=== PATIENT | female | born 1950 | race Caucasian/White ===

== ENCOUNTER → 2024-03-04 14:33 | Outpatient (REF) | payer MEDICARE, OTHER, SELFPAY ==
[2024-03-04 15:33] LABS: Urine Albumin 1+ (Neg - Trace); Urine Bilirubin 1+ (Negative); Urine Character Slightly Cloudy (Clear); Urine Glucose Negative (Negative); Urine Ketone 1+ (Negative); Urine Leukocyte 2+ (Negative); Urine Nitrite Negative (Negative); Urine Occult Blood Negative (Negative); Urine Specific Gravity 1.025 (<1.030); Urine Urobilinogen 2+ (Neg - 1+)
[2024-03-04 15:36] LABS: Urine Color Yellow
[2024-03-04 15:38] LABS: % Basophils 0.4 % (0-2); % Immature Granulocytes 0.4 % (0-0.5); % Lymphocytes 18.4 % (20.5-51.1); % Monocytes 14.8 % (1.7-9.3); Absolute Monocytes 0.8 10^3/uL (0.1-0.6); Absolute Neutrophils 3.7 10^3/uL (1.4-6.5); Hematocrit 36.3 % (37.0-47.0); Hemoglobin 12.5 g/dL (12.0-16.0); Mean Corp Hgb Conc. 34.4 g/dL (33.0-37.0); Mean Corpuscular Hgb 29.3 pg (27.0-31.0); Mean Corpuscular Volume 85.2 fL (81.0-99.0); Mean Platelet Volume 10.7 fL (7.4-10.4); Nucleated Red Blood Cells % 0 %; Platelet Count 126 10^3/uL (130-400); Red Blood Cell Count 4.26 10^6/uL (4.20-5.40); Red Cell Dist. Width 15.8 % (11.5-14.5); White Blood Cell Count 5.5 10^3/uL (4.8-10.8)
[2024-03-04 15:39] LABS: Erythrocyte Sed Rate 49 mm/hour (0-20)
[2024-03-04 15:43] LABS: Urine Bacteria Moderate (Negative); Urine Red Blood Cell 0-2 /HPF (0-2)
[2024-03-04 15:48] LABS: ALT (SGPT) 250 U/L (0-35); AST (SGOT) 170 U/L (14-36); Albumin 4.1 g/dl (3.5-5.0); Alkaline Phosphatase 141 U/L (38-126); Blood Urea Nitrogen 18 mg/dl (7-17); Carbon Dioxide 23 mmol/L (22-30); Chloride 98 mmol/L (98-107); Glucose 147 mg/dl (70-99); Potassium 4.4 mmol/L (3.5-5.1); Sodium 132 mmol/L (135-145); Total Bilirubin 1.7 mg/dl (0.2-1.3); Total Protein 7.6 g/dl (6.3-8.2); eGFR 27.71
[2024-03-06 14:21] LABS: EBV-VCA IgM Antibodies 60.1 U/mL (0.0-43.9)
[2024-03-06 15:07] LABS: Lyme Antibody Screen, EIA Presump. Positive (Negative)
== END ==
LOC: REG 14:33
PROVIDERS: ATTENDING PHYSICIAN Family Medicine
DX: R50.9 Fever, unspecified (principal); M25.50 Pain in unspecified joint
CPT/HCPCS: 36415; 71046; 80053; 81003; 81015; 85025; 85652; 86617; 86618; 86663; 86664; 86665; 87086

== ENCOUNTER 2024-03-05 04:32 | Inpatient (IN) | payer MEDICARE, OTHER, SELFPAY ==
[2024-03-04 17:57] VITALS: BMI 27.6
[2024-03-04 17:58] VITALS: BP 120/77
[2024-03-04 20:00] VITALS: BP 140/70
--- NOTE | 2024-03-04 20:13 | ED.GENMED ---
History of Present Illness
General
Chief Complaint: Abnormal Lab Value
Source: patient and spouse
Time Seen by Provider: 03/04/24 19:59
History of Present Illness
History of Present Illness:
73-year-old female presents to the emergency room at the advice of her primary care provider, Dr. Burger. Patient has been feeling unwell for the past 8 days. She has been experiencing headache, subjective fever, body aches, nausea and diffuse
crampy abdominal discomfort. She denies any sick contacts or sick relatives. She denies any recent travel. She has not noted any rashes on her body. Patient has not vomited. She is able to tolerate oral intake. She has been taking Tylenol and
ibuprofen for her symptoms. She takes 2 regular strength Tylenol [address] Burger ordered some outpatient labs which revealed somewhat elevated liver function tests and a mildly elevated creatinine which prompted his referral to the
emergency room. Patient has not taken her temperature. She denies rigors but states she felt she had a fever because her lips were chapped and she felt body aches.
Phy Exam
Physical Exam
Physical Exam:
General: Awake, Alert, Oriented X3. No acute distress.
Vitals: unremarkable
Head: Atraumatic
Eyes: Pupils equal, EOMI
Throat: Airway intact, no exudates
Neck: Trachea midline
Lungs: Clear and equal b/l
Heart: Regular rate, no murmurs
Abd: Soft, no reproducible abdominal pain, no pulsatile mass
Neuro: Nonfocal
Skin: Warm, dry, no rash
Extremities: pulses equal b/l, no edema
Course
Orders/Labs/Results
Orders:
Orders
03/04/24 20:11
US Abdomen Complete/Upper Urgent
Comment:
Reason For Exam: subjective fever, elevated lft's
03/05/24 00:30
CT Abd/pelvis W Iv Cont Urgent
Reason For Exam: fever, abd pain
03/05/24 02:22
Piperacillin/Tazo 2.25 Gram [Zosyn] 2.25 grams in 50 ml IV NOW
Vital Signs
Initial and Last Documented VS:
Initial Vital Signs
Temp Pulse Resp BP Pulse Ox
98.3 F 85 20 120/77 96
03/04/24 17:58 03/04/24 17:58 03/04/24 17:58 03/04/24 17:58 03/04/24 17:58
Last Documented Vital Signs
Temp Pulse Resp BP Pulse Ox
98.3 F 75 16 135/99 95
03/04/24 17:58 03/04/24 23:00 03/04/24 23:00 03/05/24 02:00 03/04/24 23:00
MDM/Problems Addressed
Differential Diagnosis Includes:
Patient sent to the emergency room for abnormal lab work. Reviewed lab work reveals elevated LFTs as well as an elevated creatinine. Initially an ultrasound was performed which did not reveal any specific pathology. CT was then performed which
shows a gallstone in the fundus of the gallbladder with questionable inflammation of the fundus. No other intra-abdominal pathology noted. Given the fact that she has a documented gallstone I am concerned that she may have choledocholithiasis. In
addition there is some focal inflammation around the gallbladder. Given the patient has had subjective fevers we will cover with antibiotics and hospitalize for further workup.
MDM/Problems Addressed:
Patient presents with symptoms of fatigue, leg cramping and paresthesias. Outpatient testing showed a low hemoglobin prompting a referral to the emergency room. Hemoglobin here is 7.3. Also calcium is quite low at 6 point
*Radiology
Radiology exam reviewed: radiology read reviewed
*Pulse Oximetry
Patient hypoxic: no
*Critical Care Note
Total Time (30-74mins, 75-104mins- exclusive of procedures): Not Applicable
ED Attending Note
-
Portions of this chart may have been created with voice recognition software.� Occasional wrong word or��sound alike� substitutions may have occurred due to the inherent limitations of voice recognition software.
Discharge Plan
Departure
Patient Disposition: Admit
Date of Disposition: 03/05/24
Time of Disposition: 02:19
Presentation/result/management discussed w/ accepting MD/DO: Hospitalist
Condition: Fair
Discharge Problem:
Transaminitis, Acute cholecystitis
Referrals:
UNKNOWN - PT DOES,NOT KNOW [Family Provider] -
Interventions
Interventions:
*Risk Screen - Suicide Last Done: 03/04/24 17:58
*General Assessment Last Done: 03/04/24 17:58
*Neglect/Abuse Screening Last Done: 03/04/24 17:58
ED- Fall Risk Assessment Last Done: 03/04/24 22:00
Discharge Date and Time
Print Language: TURKMEN
[2024-03-04 23:00] VITALS: BP 121/75
[2024-03-05] VITALS (10 sets, daily range): BP systolic 123–154; BP diastolic 68–99; BMI 26.7
[2024-03-05] MEDS: ZOSYN 50 IV ×2 (02:30→08:02)
[2024-03-05] MEDS: NSS 1000 IV ×2 (03:38→08:02)
--- NOTE | 2024-03-05 04:07 | HPS.HSE ---
Family Physician
-
Family Physician: NOT KNOW UNKNOWN - PT DOES
Chief Complaint
-
fevers, abdominal cramping
History of Present Illness
The patient is a 73-year-old woman with past medical history significant for colon polyps and hypothyroidism who presents to the emergency department secondary to feeling unwell for the past 8 days, experiencing headache subjective fever body aches
nausea. She is also had diffuse crampy abdominal pain. She denies vomiting. She has been taking Tylenol and ibuprofen for symptoms. She had labs ordered outpatient for which she she was noted to have elevated liver function studies and elevated
creatinine. She has been feeling feverish.
Medical History
Past Medical History
Past Medical History: Reports Hypercholesterolemia, Hypothyroidism, Psychiatric (Depression) and Other (colon polyps, Lyme disease)
Past Surgical History: Reports Orthopedic (arthroscopy of left knee)
Social History
Tobacco: Former Smoker
Alcohol: Occasional
Drug: None
Family History
Family History: Not pertinent
Allergies / Home Medications
Allergies reflects when Allergies were last updated in [employer].
Home Medications with original date entered in [employer]
Allergy/Medication List:
Allergies
Allergy/AdvReac Type Severity Reaction Status Date / Time
No Known Allergies Allergy Verified 03/04/24 18:04
Home Medications
atorvastatin 80 mg tablet 80 mg PO DAILY 03/05/24
eszopiclone 3 mg tablet 3 mg PO HS PRN sleep 03/05/24
levothyroxine 125 mcg tablet 125 mcg PO DAILY 03/05/24
lifitegrast 5 % eye drops in a dropperette (Xiidra) 1 drp ophthalmic (eye) BID 03/05/24
Review of Systems
-
A 12 point ROS was completed and negative except as noted: Yes
Physical Exam
Vital Signs
Vital Signs
Temp Pulse Resp BP Pulse Ox
98.3 F 75 16 135/99 95
07/15/24 17:58 03/04/24 23:00 03/04/24 23:00 03/05/24 02:00 03/04/24 23:00
Physical Exam
General: Well Developed, Well Nourished, No Apparent Distress, Comfortable and Conversant
HEENT: NormoCephalic, Anicteric and Moist mucous membranes
GI: Soft, Non Distended and Tender (RUQ)
Musculoskeletal: No Clubbing, No Cyanosis and No Edema
Skin: Warm and Dry
Neuro: AO x 3, No Motor Deficits and Nonfocal/grossly intact
Psych: Calm
Impression/Plan
-
IMPRESSION:
# Transaminitis, concern for choledocholithiasis
AST 170, ALT 250, total bilirubin 1.7
-CT scan of the abdomen pelvis shows gallstones in the fundus of the gallbladder with possible inflammation of the fundus.
-GI Cx appreciated
-MRCP ordered
-cont IV Zosyn for now
-gentle IVF
-NPO
# Concern for acute renal failure
-creatinine 1.9 unknown baseline
-IVF bolus and continue IVF
-repeat labs in am
-renally dose medication
#Hypothyroidism
-cont Synthroid
#HLD
-cont statin
DVT proph - PCSs
Full Code
[2024-03-05] MEDS: SYNTHROID 125 MCG PO (08:09)
[2024-03-05] MEDS: LIPITOR 80 MG PO (08:09)
[2024-03-05] MEDS: TYLENOL 325 MG PO ×2 (08:32→19:32)
--- NOTE | 2024-03-05 10:20 | PTCARENOTE ---
Patient admitted to room 407-01 from ER. Vital signs stable. Reviewed plan of care with patient. Patient verbalizes understanding of teaching. IVF started and antibiotic given as ordered. Patient NPO at this time. Given Tylenol for headache.
Oriented to room, use of call mays, and television and bed controls. Patient verbalizes understanding of all teaching and denies questions at this time.
--- NOTE | 2024-03-05 11:52 | CON.GI ---
Addendum entered and electronically signed by Gladys Rodas Do, MD 03/05/24 17:43:
I saw and examined the patient.
The SKI PRODUCTION SUPERVISOR's note was reviewed and I agree with the note.
Comment: 73yo W with h/o HL, depression and hypothyroidism who was admitted for diffuse body/joint pain and fever. GI consulted for elevated LFTs lower abd pain. At time of interview denies abd pain, nausea or vomiting. Vitals reviewed AF obese
NTTP, NABS. suprapubic tenderness. Labs +UA. Imaging: MRI with 2.3cm multiseptated cyst of uncinate and gallstones with adenomyomatosis
Impressions
- Elevated LFTs
Unclear etiology no biliary dilation or signs of choledocholithiasis
Ddx includes fatty liver or viral hepatitis
- + UA with some suprapubic tenderness
- 2.3cm uncinate pancreatic cyst
- Cholelithiasis and adenomyomatosis of gallbladder fundus
Recommendations
- Do not see indication at this juncture for ERCP.
- For pancreatic cyst can FU with Dr Woodall OP for serial MRI vs elective EUS FNA
- Adv to low fat diet
- Viral hepatitis serologies negative
No further GI workup indicated at this juncture inpatient basis
She can FU OP with Dr Woodall in our office. Will need repeat LFTs in 1 wks time
GI will sign off please call for questions.
Addendum entered and electronically signed by MAN Riggs 03/05/24 12:55:
LFT's below are from 03/04 will add repeat to today's labs
Original Note:
Consultation
-
Date/Time Consultation Requested: 03/05/24 0716
Date/Time Consultation Performed: 03/05/24 1150
Requesting Provider: Candice Hawley DO
Performing Provider: MAN Mueller, Gladys Berry MD
Reason for Consultation: increased LFT's
Medical History
Chief Complaint / HPI
Chief Complaint: abdominal pain
History of Present Illness:
Pt is a 73yo with hx hypercholesterolemia, hypothyroidism, depression, colon polyps with onset of headaches, body/joint aches and feverish but did not take temperature and mild lower abdominal pain worse with eating. On admission noted with
elevated normal WBC's, creat 1.9 with elevated LFT's with bili 1.7. AST 170, ALT 250, alk phos 141. Imaging on admission with CXR neg, US with no duct dilation, unremarkable liver, CT with cholelithiasis, diverticulosis, HH, DDD. With MRI
pending. No hx liver problems, only supplement calcium and vitamin D. She take occasional NSAID use with current illness.
Pt also admits to diarrhea and constipation, GERD, and mild post prandial discomfort. She denies dysphagia, odynophagia, rectal bleeding. No recent travel, abx, sick contact. Last ETOH 2 months ago.
Past Medical History
Past Medical History: Hypercholesterolemia, Hypothyroidism, Psychiatric (depression) and Other (colon polyps, lyme disease)
Past Surgical History: Orthopedic (knee arthoscopy )
Social History
Tobacco: Former Smoker
Alcohol: Occasional (quit 2 months ago as cost too high )
Drug: None
Living: With Family (daughter)
Employment: Retired
Family History
Family History: Other (no family hx colon Ca or polyps no family hx pancreatic problems)
Allergies / Home Medications
Allergy/AdvReac Type Severity Reaction Status Date / Time
No Known Allergies Allergy Verified 03/04/24 18:04
�Medication �Instructions �Recorded
atorvastatin 80 mg tablet 80 mg PO DAILY 03/05/24
eszopiclone 3 mg tablet 3 mg PO HS PRN sleep 03/05/24
levothyroxine 125 mcg tablet 125 mcg PO DAILY 03/05/24
lifitegrast 5 % eye drops in a 1 drp ophthalmic (eye) BID 03/05/24
dropperette (Xiidra)
Review of Systems
-
History Source: Patient
Constitutional: Reports Fever (did not take temp, felt feverish)
EENT: Reports No Symptoms
Respiratory: Reports No Symptoms
Cardiac: Reports No Symptoms
Abdomen/GI: Reports Abdominal Pain (lower abdomen )
: Reports Frequency
Musculoskeletal: Reports Joint Pain
Skin: Reports No Symptoms
Neurological: Reports Weakness
Endocrine: Reports No Symptoms
Hematologic/Lymphatic: Reports No Symptoms
Vital Signs
Temp Pulse Resp BP Pulse Ox
98.5 F 83 17 154/85 96
03/05/24 07:15 03/05/24 07:15 03/05/24 07:15 03/05/24 07:15 03/05/24 10:20
Physical Exam
Exam
General: Well Developed, Well Nourished and No Apparent Distress
HEENT: Normocephalic and Anicteric
Respiratory: Clear
Cardiac: Regular Rhythm
GI: Soft, Non Tender and Non Distended
Musculoskeletal: No Clubbing and No Cyanosis
Skin: Warm and Dry
Neuro: Awake, Alert and AO x 3
Psych: Calm
Results
Diagnostic Image Results:
03/04 US abd
The gallbladder is contracted.
No bile duct dilatation.
Unremarkable sonographic appearance of the liver
03/05 CT with IV contrast
No acute abnormality in the abdomen or pelvis.
Cholelithiasis without acute cholecystitis.
Colonic diverticulosis without acute diverticulitis.
Chronic/incidental findings as detailed in the body of the report.-- small HH, DDD
Prior GI Procedures:
EGD:none
Colonoscopy: 2022- for[facility] One 4 mm polyp in the cecum, removed with a cold snare. Resected and retrieved - Diverticulosis in the sigmoid colon. bx lymphoid aggigate
Assessment / Plan
-
Pt is a 73yo with hx hypercholesterolemia, hypothyroidism, depression, colon polyps with onset of headaches, body/joint aches and feverish but did not take temperature and mild lower abdominal pain worse with eating. On admission noted with
elevated normal WBC's, creat 1.9 with elevated LFT's with bili 1.7. AST 170, ALT 250, alk phos 141. Imaging on admission with CXR neg, US with no duct dilation, unremarkable liver, CT with cholelithiasis, diverticulosis, HH, DDD.
-elevated LFT's
-fever/joint pain/headache/malaise
-lower abdominal pain
-cholelithiasis
-LANNY on admission
-mild thrombocytopenia
other med problems:
-hypercholesterolemia
-hypothyroidism
-depression
-colon polyp
PLAN:
Etiology of symptoms with fever, joint pain, malaise related to viral syndrome, urinary related with lower abdominal pain and some bacterial in urine with LANNY, vs biliary vs other
add blood cultures with report fever symptoms , urine cx pending, CXR neg
await MRI abdomen report pending
add hepatitis panel
add lipase
lyme, EBV pending
reviewed with nursing no documented fever -- if pt feels feverish to take temp to document
will follow
-
-
Thank you for consultation and allowing me to participate in the patient's care. Please call the technical consultant GI physician during the after hours with any questions or concerns.
[2024-03-05 13:36] LABS: ALT (SGPT) 204 U/L (0-35); AST (SGOT) 100 U/L (14-36); Albumin 3.7 g/dl (3.5-5.0); Alkaline Phosphatase 120 U/L (38-126); Direct Bilirubin 0.6 mg/dl (0.0-0.4); Lipase 59 U/L (23-300); Total Bilirubin 1.5 mg/dl (0.2-1.3); Total Protein 7.1 g/dl (6.3-8.2)
--- NOTE | 2024-03-05 13:39 | W.PN.HOSP.TC ---
Today's Communication/Plan
-
Okay for low fat diet as per GI
Continue antibiotics
Assessment / Plan
Assessment / Plan
Physical Exam
General: Not in acute distress
HEENT: Normocephalic, Moist mucous membranes
GI: Soft, Non Distended and Tender (RUQ)
Musculoskeletal: No Clubbing, No Cyanosis and No Edema
Skin: Warm and Dry
Neuro: AO x 3, No Motor Deficits and Nonfocal/grossly intact
Psych: Calm

Assessment/Plan
# Transaminitis, concern for choledocholithiasis
# Fever/joint pain/headache/malaise secondary to viral syndrome, UTI?, vs biliary source
# Lower abdominal pain
# Cholelithiasis
-CT scan of the abdomen pelvis shows gallstones in the fundus of the gallbladder with possible inflammation of the fundus.
-GI consulted, recommendations appreciated
-MRCP ordered
-Follow blood and urine cultures
-Hepatitis Panel
-Check Lipase
-Lyme and EBV also pending
-Status post Zosyn
-Change to Rocephin and Flagyl
-gentle IVF
-Low fat diet
# Concern for acute renal failure
-creatinine 1.9 unknown baseline
-IVF bolus and continue IVF
-repeat labs in am
-renally dose medication
#Hypothyroidism
-cont Synthroid
#HLD
-cont statin
#History of Colonic Polyps
#Depression
DVT Prophylaxis - SCDs and Heparin Subq
Full Code
Anticipated Discharge: > 48 hours
Subjective/Interval History
-
Date of Service: March 05, 2024
Patient was seen and examined. She reported a mild headache which she has been having for a few days now, otherwise denied any other new significant symptoms or complaints.
Objective Data
-
Labs:
Laboratory Results
03/05/24
12:44
Total Bilirubin 1.5 H
AST 100 H
ALT 204 H
Alkaline Phosphatase 120
Vital Signs:
Vital Signs
Temp Pulse Resp BP Pulse Ox
98.6 F 83 17 132/79 97
03/05/24 12:19 03/05/24 12:19 03/05/24 12:19 03/05/24 12:19 03/05/24 12:19
[2024-03-05 14:06] LABS: Hepatitis B Surface Antigen Negative (Negative)
[2024-03-05 14:24] LABS: Hepatitis B Core Ab, Total Negative (Negative); Hepatitis B Surface Antibody Negative; Hepatitis C Antibody Negative (Negative)
[2024-03-05 14:39] LABS: Hepatitis A Antibody, Total Positive (Negative)
[2024-03-05 15:33] LABS: Hepatitis A IgM Antibody Negative (Negative)
[2024-03-05] MEDS: FLAGYL 500 MG 100 IV (17:13)
[2024-03-05] MEDS: ROCEPHIN 2000 MG IV (17:14)
[2024-03-05] MEDS: STERILE WATER FOR INJECTION 20 ML IV (17:15)
[2024-03-05] MEDS: ZOSYN IV (18:01)
[2024-03-05] MEDS: HEPARIN 5000 UNITS SC (19:30)
[2024-03-05] MEDS: MELATONIN 5 MG PO (22:11)
[2024-03-06] VITALS (8 sets, daily range): BP systolic 106–145; BP diastolic 62–82; PULSE 74; O2SAT 96
[2024-03-06] MEDS: FLAGYL 500 MG 100 IV ×2 (00:53→08:56)
[2024-03-06] MEDS: ROXICODONE 5 MG PO ×2 (00:56→05:42)
--- NOTE | 2024-03-06 03:01 | DOWNTIME ---
There was a [employer] Client [employer] Downtime on 03/06/2024 from 0100 to 03/06/2024 at 0255. Downtime documentation of patient's care, including medication administrations, has been reconciled in the electronic record per guidelines. Refer to the
patient's paper chart under the miscellaneous tab to see printed paper medication records and downtime forms.
[2024-03-06] MEDS: SYNTHROID 125 MCG PO (05:35)
[2024-03-06 07:17] LABS: INR 1.15; PT 14.5 Sec (11.4-14.6)
[2024-03-06 07:22] LABS: ALT (SGPT) 162 U/L (0-35); AST (SGOT) 83 U/L (14-36); Albumin 3.3 g/dl (3.5-5.0); Alkaline Phosphatase 110 U/L (38-126); Blood Urea Nitrogen 12 mg/dl (7-17); Calcium 8.7 mg/dl (8.4-10.2); Carbon Dioxide 24 mmol/L (22-30); Chloride 106 mmol/L (98-107); Estimated Creatinine Clearance 45 ml/min; Glucose 109 mg/dl (70-99); Magnesium 1.7 mg/dl (1.6-2.3); Potassium 4.2 mmol/L (3.5-5.1); Sodium 137 mmol/L (135-145); Total Protein 6.5 g/dl (6.3-8.2); eGFR 53.39
[2024-03-06 08:35] LABS: Hematocrit 31.3 % (37.0-47.0); Hemoglobin 10.7 g/dL (12.0-16.0); Mean Corp Hgb Conc. 34.2 g/dL (33.0-37.0); Mean Corpuscular Hgb 29.9 pg (27.0-31.0); Mean Corpuscular Volume 87.4 fL (81.0-99.0); Mean Platelet Volume 10.2 fL (7.4-10.4); Platelet Count 171 10^3/uL (130-400); Red Blood Cell Count 3.58 10^6/uL (4.20-5.40); White Blood Cell Count 4.8 10^3/uL (4.8-10.8)
[2024-03-06] MEDS: HEPARIN 5000 UNITS SC ×2 (08:56→20:39)
[2024-03-06] MEDS: LIPITOR 80 MG PO (08:56)
[2024-03-06] MEDS: TYLENOL 325 MG PO (09:18)
--- NOTE | 2024-03-06 10:42 | CON.NEURO4 ---
Consultation - Neurology 4
-
CONSULTING PHYSICIAN: Guillermo Ledezma
REFERRING PHYSICIAN: Hospitalist
DICTATED BY: Guillermo Ledezma
DATE/TIME OF REQUEST: 03/06/24
DATE/TIME OF CONSULTATION: 03/06/24
Reason for Consultation: Headache
History of Present Illness:
Patient is a 73-year-old woman with a past medical history of hyperlipidemia and hypothyroidism who presented to hospital with constellation of symptoms of fatigue, diffuse body and joint pain, headache, malaise and subjective fevers.
Her symptoms began around 10 days ago with the above symptoms. Reports sick contact with her daughter. Patient did have some indigestion and intermittent on and off diarrhea. Lab work showed elevated liver function tests along with LANNY, abnormal
urinalysis. Has been being treated with antibiotics, initially was a concern for choledocholithiasis or cholecystitis.
Patient reports no recent head or neck trauma and headache began around 10 days ago with her other associated symptoms. She reports some jaw pain sometimes with chewing that feels like the hinge of her jaw feels yadira, has improved and not
noticeable in the past couple of days. No vision changes. Headache is not changed with position and she has no photophobia or phonophobia. Minimal nausea has been present. No history of headaches or migraines in her younger years and in general
does not get headaches.
Patient also describes some bilateral numbness in the hands and arms in the pinky and ring finger distribution going on but more recently the past few days this is intermittent, no weakness of the arms or hands.
Has used intermittent Tylenol and ibuprofen for symptom relief but not everyday or multiple times a day.
Past Medical History: Hyperlipidemia, hypothyroidism, depression, colon polyps, previous lyme disease
Surgical History: Left knee arthroscopy
Family History: Non-contributory
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
Allergies: No known drug allergies
Review of Symptoms:
Patient denies any chest pain, shortness of breath, GI or symptoms. Positive for fatigue, malaise, headache
Physical Exam:
Well-appearing middle elderly age woman with ice pack on her head no meningismus, neck is supple full range of motion eyes are clear, oropharynx is clear, no temporal area tenderness, eyes are clear, heart rate regular breathing unlabored abdomen
soft nontender
Neurologic Examination:
The patient is awake, alert and oriented x 3. She is able to follow commands and answer questions appropriately. There is no aphasia or dysarthria. On cranial nerve assessment, pupils are 3 mm bilateral, round and reactive to light and
accommodation. Visual brown are full. Extraocular movements are intact. Facial sensations are intact and bilaterally symmetrical, there is no facial asymmetry. Hearing is intact bilaterally to normal conversation volume. Tongue palate and uvula
are midline. Sternocleidomastoid strengths are full bilaterally. Motor strengths are 5/5 bilateral upper and lower extremities on medical research Underwood scale. There is no drift or involuntary movement noted. Deep tendon reflexes are 2+ bilateral
upper and lower extremities and Babinski is absent bilaterally. Sensations of pain, touch, temperature and vibration are intact and bilaterally symmetrical. There was no extinction noted on double simultaneous stimulation. Coordination is intact by
finger to nose bilaterally.
Impressions
1. Headaches seem most likely secondary to a systemic illness and metabolic derangements of kidney injury and liver injury. There has been concern for choledocholithiasis or cholecystitis or possibly a viral syndrome. Given these associated
findings of systemic symptoms along with LANNY and elevated liver function test I feel that giant cell arteritis is unlikely, is very rare for this to cause significant liver function or kidney function abnormalities and patient has recent sick
contacts.
2. Hand numbness seems most likely ulnar neuropathy from recent compression and sedentary state. No weakness.
2. 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
3. LANNY and moderate elevation in LFT's noted. Does not seem she was using so much NSAID or Tylenol at home that these are purely due to medication use.
Recommendations:
1. Give 10 mg IV Compazine now and use 10 mg every 8 hours IV as needed for head
2. Follow kidney function and if GFR goes above 60 could use very low-dose of codeine as needed for headache
3. Avoid NSAIDs with the LANNY
4. Follow blood cultures, infectious workup, EBV is pending
5. Check CT head and CT cervical spine
6. If she is unimproved with time and no clear cause of symptoms and call us back, feels premature and a bit drastic at this time to initiate steroids and temporal artery biopsy
7. Check ANCA and BARRY
Discussed patient care with: Patient and hospitalist
--- NOTE | 2024-03-06 11:28 | W.PN.HOSP.TC ---
Today's Communication/Plan
-
Continue antibiotics
Lyme and EBV tests coming back positive
Appreciate ID and patient's PCP
Assessment / Plan
Assessment / Plan
Physical Exam
General: Not in acute distress
HEENT: Normocephalic, Moist mucous membranes
GI: Soft, Non Distended and Tender (RUQ)
Musculoskeletal: No Clubbing, No Cyanosis and No Edema
Skin: Warm and Dry
Neuro: AO x 3, No Motor Deficits and Nonfocal/grossly intact
Psych: Calm

Assessment/Plan
# Transaminitis, concern for choledocholithiasis
# Fever/joint pain/headache/malaise secondary to viral syndrome, UTI?, vs biliary source
# Lower abdominal pain
# Cholelithiasis
# 2.3cm uncinate pancreatic cyst
# Cholelithiasis and adenomyomatosis of gallbladder fundus
-CT scan of the abdomen pelvis showed gallstones in the fundus of the gallbladder with possible inflammation of the fundus.
-GI consulted, recommendations appreciated
-MRCP showed 2.3cm multiseptated cyst of uncinate and gallstones with adenomyomatosis
-Follow blood and urine cultures
-Hepatitis Panel negative
-Lyme and EBV studies coming back positive: discussed this with patient's PCP on March 06, 2024
-ID consulted, recommendations appreciated
-Status post Zosyn, Rocephin and Flagyl
-Now on Doxycycline
-Low fat diet
#Headache
-Possible from Lyme/EBV
-Appreciate neurology recommendations
-Compazine 10 mg every 8 hours IV as needed for headache
-If GFR rises above 60 could use very low-dose of codeine as needed for headache
-Avoid NSAIDs given LANNY
-CT head and CT cervical spine noted
-If patient is unimproved with time and no clear cause of symptoms, then reconsult neuro
-Check ANCA and BARRY
# Hand numbness
-Likely ulnar neuropathy from recent compression and sedentary state, as per neuro
# Concern for acute renal failure
-creatinine 1.9 unknown baseline
-IVF bolus and continue IVF
-repeat labs in am
-renally dose medication
#Hypothyroidism
-cont Synthroid
#Hyperlipidemia
-cont statin
#History of Colonic Polyps
#Depression
DVT Prophylaxis - SCDs and Heparin Subq
Full Code
Anticipated Discharge: 24 - 48 hours
Subjective/Interval History
-
Date of Service: March 06, 2024
Patient was seen and examined. She continued to report headache, but her body aches have resolved.
Objective Data
-
Labs:
Laboratory Results
03/06/24
06:26
WBC 4.8
Hgb 10.7 L
Hct 31.3 L
Plt Count 171 D
PT 14.5
INR 1.15
Sodium 137
Potassium 4.2
Chloride 106
Carbon Dioxide 24
BUN 12
Creatinine 1.1 H
Glucose 109 H
Calcium 8.7
Total Bilirubin 1.0
AST 83 H
ALT 162 H
Alkaline Phosphatase 110
Vital Signs:
Vital Signs
Temp Pulse Resp BP Pulse Ox
97.6 F 93 20 145/74 95
03/06/24 11:00 03/06/24 11:00 03/06/24 11:00 03/06/24 11:00 03/06/24 11:00
I&O
03/05/24 03/06/24 03/07/24
06:59 06:59 06:59
Intake Total 1680 / 1680
Balance 1680 / 1680
[2024-03-06 11:29] LABS: Absolute Neutrophils -Man Diff 2.6 10^3/uL (1.4-6.5); Band Neutrophils 0 % (0-3); Lymphocytes 25 % (20-51); Monocytes 20 % (2-9); Segmented Neutrophils 55 % (42-75)
[2024-03-06 11:30] LABS: Normal RBC Morphology Yes; Platelets Checked Yes; Total Cells Counted 100
--- NOTE | 2024-03-06 11:41 | PTCARENOTE ---
Patient with complaints of 'explosive' headache, nausea, and bilateral numbness and tingling in both arms and hands (pinkie and ring finger of both hands). Hospitalist notified. Neurology consult placed and at bedside.
[2024-03-06] MEDS: COMPAZINE 10 MG IV (12:14)
--- NOTE | 2024-03-06 14:51 | CM ---
DOUG met with Mellisa to complete IA. Mellisa lives with her daughter in a 2 story home with 1 entry step. She is (I) amb and adls. typically very active, walking 2+ miles/day.
Plan for discharge to home with daughter. No discharge needs identified.
PCP/Pharmacy: Pt would not share her PCP or pharmacy; not documented in [facility] summary.
[2024-03-06] MEDS: STERILE WATER FOR INJECTION 20 ML IV ×2 (16:16)
[2024-03-06] MEDS: ROCEPHIN 2000 MG IV (16:18)
[2024-03-06] MEDS: VIBRAMYCIN 100 MG PO (20:39)
[2024-03-06] MEDS: NON-FORMULARY ITEM 1 UNIT PO (22:15)
[2024-03-07 04:32] VITALS: BP 122/75
[2024-03-07] MEDS: SYNTHROID 125 MCG PO (05:35)
[2024-03-07] MEDS: LIPITOR 80 MG PO (08:00)
[2024-03-07] MEDS: HEPARIN 5000 UNITS SC ×2 (08:00→20:29)
[2024-03-07] MEDS: VIBRAMYCIN 100 MG PO ×2 (08:00→20:31)
[2024-03-07 08:11] VITALS: BP 124/69
[2024-03-07 09:23] LABS: % Basophils 0.4 % (0-2); % Immature Granulocytes 0.2 % (0-0.5); % Lymphocytes 37.7 % (20.5-51.1); % Neutrophils 42.7 % (42.2-75.2); Absolute Lymphocytes 1.8 10^3/uL (1.2-3.4); Absolute Monocytes 0.9 10^3/uL (0.1-0.6); Hematocrit 32.2 % (37.0-47.0); Hemoglobin 10.9 g/dL (12.0-16.0); Mean Corp Hgb Conc. 33.9 g/dL (33.0-37.0); Mean Corpuscular Hgb 29.8 pg (27.0-31.0); Mean Platelet Volume 10.1 fL (7.4-10.4); Nucleated Red Blood Cells % 0 %; Platelet Count 197 10^3/uL (130-400); Red Blood Cell Count 3.66 10^6/uL (4.20-5.40); Red Cell Dist. Width 16.2 % (11.5-14.5); White Blood Cell Count 4.8 10^3/uL (4.8-10.8)
[2024-03-07 10:12] LABS: ALT (SGPT) 155 U/L (0-35); AST (SGOT) 90 U/L (14-36); Albumin 3.5 g/dl (3.5-5.0); Alkaline Phosphatase 108 U/L (38-126); Blood Urea Nitrogen 10 mg/dl (7-17); Calcium 8.9 mg/dl (8.4-10.2); Carbon Dioxide 24 mmol/L (22-30); Chloride 107 mmol/L (98-107); Estimated Creatinine Clearance 49 ml/min; Glucose 89 mg/dl (70-99); Potassium 4.5 mmol/L (3.5-5.1); Sodium 137 mmol/L (135-145); Total Bilirubin 0.9 mg/dl (0.2-1.3); Total Protein 6.7 g/dl (6.3-8.2); eGFR 59.86
--- NOTE | 2024-03-07 10:34 | CON.ID ---
Addendum entered and electronically signed by Joaquin Bhatia, 03/07/24 15:10:
I have personally performed a history and physical exam of the patient and discussed management with the resident. I reviewed the resident's note and agree with the documented findings and plan of care HPI/CC except the following changes in
documentation.
Patient reports significant outdoor exposure, often hiking with her dog in the [place]. She denies the use of insect repellent or permethrin clothing treatment. She notes that she has seen ticks on her body this year.
Blood parasite slide ordered, and has revealed the presence of Babesia (<1%).
Begin Azithromycin 500 mg p.o. daily x 10 days.
Begin atovaquone 750 mg p.o. twice daily x 10 days.
Ok to continue doxycycline for possible coinfection. Would complete a 14-day course.
Discussed with case management so that insurance coverage for the above antibiotics can be assessed.
Original Note:
Consultation
-
Date/Time Consultation Requested: 03/06/2024, 16:06
Date/Time Consultation Performed: 03/07/2024, 10:00
Requesting Provider: Dr. Eyal He
Performing Provider: Dr. Joaquin Bhatia
Chief Complaint / Past History
Chief Complaint
Myalgia, abnormal outpatient blood work.
History of Present Illness
Mr. Mellisa Mcfadden is a 73-year-old female being evaluated the request of Dr. Mahoney in regards to positive Lyme/EBV serology. History is obtained from chart review, along with patient interview.
Patient presented to the ER at the advice of her primary care provider, Dr. Burger after having abnormal outpatient blood work. Patient reports feeling unwell for a week prior to the date of admission. She has been experiencing headache,
subjective fever/chills, body aches, nausea, lightheadedness, and diffuse crampy abdominal discomfort. Patient did not record her body temperature at home. Patient mentioned that her daughter had a viral infection for a couple of days prior to her
symptoms started. She denies any recent travel, history of tick bites, rashes on her body, joint pain, nausea/vomiting. She is able to tolerate oral intake. She has been taking Tylenol and ibuprofen for her symptoms. Dr. Burger ordered some
outpatient labs which revealed somewhat elevated liver function tests and creatinine. She was given Zosyn in the ER. CT scan of the abdomen/pelvis showed gallstones in the fundus of the gallbladder with possible inflammation., No
choledocholithiasis. Patient was switched to Rocephin and Flagyl.
EBV/Lyme serology came back positive. Patient was switched to doxycycline.
During the clinical encounter, patient mentioned that she has improved a lot after admission. She does not have any symptoms currently.
Past History
Past Medical History: Hypercholesterolemia, Hypothyroidism and Other (Depression, colon polyps)
Past Surgical History: Other (Arthroscopy of left knee)
Allergy History:
No Known Allergies Allergy (Verified 03/04/24 18:04)
Medications Reviewed: Yes
Current Antibiotics:
Doxycycline 100 mg every 12, p.o.
Social History
Tobacco: Non-Smoker
Alcohol: None
Drug: None
Personal: Single
Living: With Family (Lives with daughter)
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
Family History
Family History: Not Pertinent
Review of Systems
Review of Systems
As per HPI
Vital Signs
Temp Pulse Resp BP Pulse Ox
99.6 F 74 18 124/69 93
03/07/24 08:11 03/07/24 08:11 03/07/24 08:11 03/07/24 08:11 03/07/24 08:11
Physical Exam
Physical Exam
Constitutional: No Acute Distress and Comfortable
Head: Normocephalic
Lymph Nodes: Other (No cervical lymphadenopathy.)
Cardiovascular: Regular Rate and S1/S2
Pulmonary: Clear
Gastrointestinal: Soft, Non Tender, Non Distended and Normal Bowel Sounds
Skin: Warm and Dry
Neurological: Awake, Alert, Oriented and AO x 3
Lab / Diagnostic Study Results
03/07/24 08:40
03/07/24 08:40
Abs Immat Gran (auto) 0.0 10^3/uL (0-0.05) 03/07/24 08:40
Absolute Neuts (auto) 2.0 10^3/uL (1.4-6.5) 03/07/24 08:40
Absolute Lymphs (auto) 1.8 10^3/uL (1.2-3.4) 03/07/24 08:40
Absolute Monos (auto) 0.9 10^3/uL (0.1-0.6) H 03/07/24 08:40
Absolute Basos (auto) 0.0 10^3/uL (0-0.2) 03/07/24 08:40
Total Counted 100 03/06/24 06:26
Immature Gran % 0.2 % (0-0.5) 03/07/24 08:40
Neutrophils % 42.7 % (42.2-75.2) 03/07/24 08:40
Lymphocytes % 37.7 % (20.5-51.1) 03/07/24 08:40
Monocytes % 19.0 % (1.7-9.3) H 03/07/24 08:40
Eosinophils % 0.0 % (0-6) 03/07/24 08:40
Basophils % 0.4 % (0-2) 03/07/24 08:40
Abs Neuts (Manual) 2.6 10^3/uL (1.4-6.5) 03/06/24 06:26
Segmented Neutrophils 55 % (42-75) 03/06/24 06:26
Band Neutrophils 0 % (0-3) 03/06/24 06:26
Lymphocytes (Manual) 25 % (20-51) 03/06/24 06:26
PT 14.5 Sec (11.4-14.6) 03/06/24 06:26
INR 1.15 03/06/24 06:26
Microbiology Results
Micro:
03/05/24 12:44 Blood Culture - Preliminary
Blood/Venous No Growth in 24 hours- Final report to follow
Imaging
CT abdomen pelvis�03/05/2024- No acute abnormality in the abdomen or pelvis.
Cholelithiasis without acute cholecystitis.
Colonic diverticulosis without acute diverticulitis.
MRI with MRCP�03/05/2024. ADENOMYOMATOSIS and CHOLELITHIASIS in the gallbladder fundus.
2. No MRCP evidence for choledocholithiasis.
3. 2.3 cm multiseptated cyst in the uncinate process of the pancreas which is most likely an intraductal papillary mucinous tumor (IPMT).
4. Mild chronic bilateral renal disease.
5. Severe discogenic degenerative disease in the thoracic and lumbar spine.
6. Chronic vertebral body endplate fractures of T9 and L1.
CT cervical spine without contrast�03/06/2024�
No acute fracture or malalignment. No high-grade narrowing of the central cervical spinal canal. Multilevel overall moderate degenerative changes as above.
Head CT�03/06/2024
No acute intracranial abnormality.
Assessment / Plan
Impression
Myalgia, subjective fevers
Cholelithiasis, transaminitis
Elevated creatinine
Hyperlipidemia
Hypothyroidism
History of colonic polyps
Depression
Recommendation
No leukocytosis, patient is afebrile
Serology positive for Lyme, EBV
Continue doxycycline, 100mg, PO, Q12.
Blood culture NGTD
Urine culture�no significant bacteriuria
Monitor patient for clinical improvement
Trend WBC, fever curve
[2024-03-07 11:29] VITALS: BP 122/74
--- NOTE | 2024-03-07 11:32 | W.PN.HOSP.TC ---
Addendum entered and electronically signed by Chris Mahoney MD 03/07/24 14:49:
Cancelled discharge as patient blood parasites smear came back positive. Dr. Bhatia to evaluate for Atovaquone whose estrada can be costly and will need to be checked prior to discharge.
Original Note:
Today's Communication/Plan
-
Discharge today
Assessment / Plan
Assessment / Plan
Physical Exam
General: Not in acute distress
HEENT: Normocephalic, Moist mucous membranes
GI: Soft, Non Distended and Tender (RUQ)
Musculoskeletal: No Cyanosis and No Edema
Skin: Warm and Dry
Neuro: AAO x 3, No Motor Deficits and Nonfocal/grossly intact
Psych: Calm

Assessment/Plan
# Transaminitis, concern for choledocholithiasis
# Fever/joint pain/headache/malaise secondary to viral syndrome, UTI?, vs biliary source
# Lower abdominal pain
# Cholelithiasis
# 2.3cm uncinate pancreatic cyst
# Cholelithiasis and adenomyomatosis of gallbladder fundus
-CT scan of the abdomen pelvis showed gallstones in the fundus of the gallbladder with possible inflammation of the fundus.
-GI consulted, recommendations appreciated
-MRCP showed 2.3cm multiseptated cyst of uncinate and gallstones with adenomyomatosis
-Follow blood and urine cultures
-Hepatitis Panel negative
-Lyme and EBV studies came back positive: discussed this with patient's PCP on March 06, 2024
-ID consulted, recommendations appreciated
-Status post Zosyn, Rocephin and Flagyl
-Now on Doxycycline 100 mg BID -- should continue this for a total of 14 days (first dose was on the evening of March 06, 2024)
-Low fat diet
#Headache
-Possibly from Lyme/EBV
-Appreciate neurology recommendations
-Compazine 10 mg every 8 hours IV as needed for headache
-If GFR rises above 60 could use very low-dose of codeine as needed for headache
-Avoid NSAIDs given LANNY this hospitalization
-CT head and CT cervical spine noted
-If patient is unimproved with time and no clear cause of symptoms, then reconsult neuro
-Follow-up ANCA and BARRY
# Hand numbness - RESOLVED
-Likely ulnar neuropathy from recent compression and sedentary state, as per neuro
# Concern for acute renal failure
-creatinine 1.9 unknown baseline
-IVF bolus and continue IVF
-renally dose medication
-Recheck CBC and BMP outpatient
#Hypothyroidism
-cont Synthroid
#Hyperlipidemia
-cont statin
#History of Colonic Polyps
#Depression
DVT Prophylaxis - SCDs and Heparin Subq
Full Code
More than 30 minutes spent in discharge including
Final examination of the patient
Summarizing hospital stay
Instructions for continuing care to all relevant caregivers
Preparation of discharge records, prescriptions, and referral forms
Total time spent (in minutes): 38
Anticipated Discharge: Today
Subjective/Interval History
-
Date of Service: March 07, 2024
Patient was seen and examined. She reported that her headache is gone, and denied any other symptoms or complaints. She is willing to go home today.
Objective Data
-
Labs:
Laboratory Results
03/07/24
08:40
WBC 4.8
Hgb 10.9 L
Hct 32.2 L
Plt Count 197
Sodium 137
Potassium 4.5
Chloride 107
Carbon Dioxide 24
BUN 10
Creatinine 1.0
Glucose 89
Calcium 8.9
Total Bilirubin 0.9
AST 90 H
ALT 155 H
Alkaline Phosphatase 108
Vital Signs:
Vital Signs
Temp Pulse Resp BP Pulse Ox
98.1 F 84 18 122/74 95
03/07/24 11:29 03/07/24 11:29 03/07/24 11:29 03/07/24 11:29 03/07/24 11:29
I&O
03/06/24 03/07/24 03/08/24
06:59 06:59 06:59
Intake Total 1680 / 1680 1080 / 1080
Balance 1680 / 1680 1080 / 1080
--- NOTE | 2024-03-07 14:28 | W.DS.TRANS ---
DC Summary - Orthopaedic General
-
Discharge Instructions:
Discharge Diagnosis/Procedures # Transaminitis
# Fever/joint pain/headache/malaise secondary to
Lyme Disease vs. EBV vs. Viral Syndrome
# Lower abdominal pain
# Cholelithiasis
# 2.3cm uncinate pancreatic cyst
# Cholelithiasis and adenomyomatosis of
gallbladder fundus
# Valvular and coronary artery calcifications
# Mild atherosclerotic disease of the abdominal
aorta
# Headache - RESOLVED
# Hand numbness - RESOLVED - Likely from ulnar
neuropathy from recent compression and sedentary
state, as per neuro
# Concern for acute renal failure
# Hypothyroidism
# Hyperlipidemia
# History of Colonic Polyps
# Colonic Diverticulosis
# Per CT Imaging Report: 'Multilevel
degenerative changes throughout the
thoracolumbar spine superior endplate depression
involving L1 of approximately 25%. 5 mm grade 1
retrolisthesis of L1 relative to L2. Minimal
grade 1 anterolisthesis of L3 relative to L4.'
# Depression
#Abdominal MRI Results as per Radiologist's
Report:
'IMPRESSION:
1. ADENOMYOMATOSIS and CHOLELITHIASIS in the
gallbladder fundus.
2. No MRCP evidence for choledocholithiasis.
3. 2.3 cm multiseptated cyst in the uncinate
process of the pancreas which is most likely an
intraductal papillary mucinous tumor (IPMT).
4. Mild chronic bilateral renal disease.
5. Severe discogenic degenerative disease in
the thoracic and lumbar spine.
6. Chronic vertebral body endplate fractures
of T9 and L1.'
Diet Low Fat
Activity As tolerated
Driving Restrictions Not until seen by your Dr
Instructions:
Stand-Alone Forms:
Changes to Home Medications: Yes
Discharge Medications:
DC Medications w/original date entered in [employer]
atorvastatin 80 mg tablet 80 mg PO DAILY High Cholesterol 03/05/24
eszopiclone 3 mg tablet 3 mg PO HS PRN sleep 03/05/24
levothyroxine 125 mcg tablet 125 mcg PO DAILY Thyroid 03/05/24
lifitegrast 5 % eye drops in a dropperette (Xiidra) 1 drp ophthalmic (eye) BID Eye Condition 03/05/24
doxycycline hyclate 100 mg capsule 100 mg PO Q12 13 days #26 caps 03/07/24
Home Medication Changes
Doxycycline is a new medication.
Pending Results: Yes
Additional Pending Results:
Peripheral blood smear, blood culture results
Total time spent discharging patient (in min): 38
[2024-03-07] MEDS: ZITHROMAX 500 MG PO (15:42)
[2024-03-07 16:27] VITALS: BP 144/90
[2024-03-07 19:48] VITALS: BP 127/62
[2024-03-07] MEDS: MEPRON SUSPENSION 750 MG PO (20:31)
[2024-03-07] MEDS: NON-FORMULARY ITEM 1 UNIT PO (21:52)
[2024-03-07 23:29] VITALS: BP 130/71
[2024-03-08 03:26] VITALS: BP 125/73
[2024-03-08] MEDS: SYNTHROID 125 MCG PO (06:07)
[2024-03-08 07:00] VITALS: BP 145/67
[2024-03-08] MEDS: MEPRON SUSPENSION 750 MG PO (08:33)
[2024-03-08] MEDS: VIBRAMYCIN 100 MG PO (08:33)
[2024-03-08] MEDS: LIPITOR 80 MG PO (08:33)
[2024-03-08] MEDS: HEPARIN 5000 UNITS SC (08:33)
[2024-03-08] MEDS: TYLENOL 325 MG PO (08:38)
[2024-03-08 08:53] LABS: % Basophils 0.4 % (0-2); % Immature Granulocytes 0.4 % (0-0.5); % Lymphocytes 34.7 % (20.5-51.1); % Monocytes 18.8 % (1.7-9.3); % Neutrophils 45.7 % (42.2-75.2); Absolute Lymphocytes 1.8 10^3/uL (1.2-3.4); Absolute Neutrophils 2.4 10^3/uL (1.4-6.5); Hematocrit 31.9 % (37.0-47.0); Hemoglobin 10.7 g/dL (12.0-16.0); Mean Corp Hgb Conc. 33.5 g/dL (33.0-37.0); Mean Corpuscular Hgb 28.8 pg (27.0-31.0); Mean Corpuscular Volume 85.8 fL (81.0-99.0); Nucleated Red Blood Cells % 0 %; Platelet Count 210 10^3/uL (130-400); Red Blood Cell Count 3.72 10^6/uL (4.20-5.40); Red Cell Dist. Width 16.3 % (11.5-14.5); White Blood Cell Count 5.2 10^3/uL (4.8-10.8)
[2024-03-08 09:42] LABS: ALT (SGPT) 198 U/L (0-35); AST (SGOT) 161 U/L (14-36); Albumin 3.5 g/dl (3.5-5.0); Alkaline Phosphatase 114 U/L (38-126); Blood Urea Nitrogen 10 mg/dl (7-17); Calcium 9.1 mg/dl (8.4-10.2); Carbon Dioxide 26 mmol/L (22-30); Chloride 105 mmol/L (98-107); Estimated Creatinine Clearance 55 ml/min; Glucose 97 mg/dl (70-99); Potassium 4.2 mmol/L (3.5-5.1); Sodium 136 mmol/L (135-145); Total Bilirubin 1.2 mg/dl (0.2-1.3); Total Protein 6.8 g/dl (6.3-8.2); eGFR > 60.00
--- NOTE | 2024-03-08 10:48 | W.PN.ID1 ---
Addendum entered and electronically signed by Joaquin Bhatia DO 03/08/24 11:33:
I saw and evaluated the patient. I reviewed the resident�s note and agree with findings and plan as documented in the resident�s note.
Patient feeling improved. No fevers.
Continue current course of :
doxy (empiric for coverage of Lyme and possible ehrlichia) - 14 days total
azithromycin / atovaquone (for definitive tx of babesia) - 10 days total
Trend LFT's
Original Note:
Date of Service
Date of Service: March 08, 2024
Today's Communication
.
Assessment / Plan
Impression
Myalgia, subjective fevers
Cholelithiasis, transaminitis
Elevated creatinine
Hyperlipidemia
Hypothyroidism
History of colonic polyps
Depression
Recommendation
No leukocytosis, patient is afebrile
Serology positive for Lyme, EBV
Continue doxycycline, 100mg, PO, Q12.
Blood culture NGTD
PBS- Babesia, 1% parasitemia.
Started on Azithromycin, Atovaquone - 10 day course .(today is day 2 )
Continue antibiotics.
Urine culture�no significant bacteriuria
Monitor patient for clinical improvement
Trend WBC, fever curve
Subjective / Review of Systems
Patient is comfortable, no acute overnight events.
Review of Systems: No Fever and No Chills
Vital Signs / Physical Exam
Vital Signs
Vital Signs
Temp Pulse Resp BP Pulse Ox
98.0 F 63 18 145/67 96
03/08/24 07:00 03/08/24 07:00 03/08/24 07:00 03/08/24 07:00 03/08/24 07:00
Physical Exam
Constitutional: No Acute Distress and Comfortable
Cardiovascular: Regular Rate and S1/S2
Pulmonary: Clear
Gastrointestinal: Soft, Non Tender, Non Distended and Normal Bowel Sounds
Skin: Warm and Dry
Neurological: Awake, Alert, Oriented and AO x 3
Objective Data
Lab Data
Lab Results
03/08/24 08:10
03/08/24 08:10
PT 14.5 Sec (11.4-14.6) 03/06/24 06:26
INR 1.15 03/06/24 06:26
Estimated Creat Clear 55 ml/min 03/08/24 08:10
Total Bilirubin 1.2 mg/dl (0.2-1.3) 03/08/24 08:10
AST 161 U/L (14-36) H 03/08/24 08:10
ALT 198 U/L (0-35) H 03/08/24 08:10
Alkaline Phosphatase 114 U/L (38-126) 03/08/24 08:10
Most recent labs reviewed.
Micro Results:
03/07/24 12:40 Blood Parasites Smear - Final
Blood/Venous Babesia species
03/05/24 12:44 Blood Culture - Preliminary
Blood/Venous No Growth in 48 hours- Final report to follow
Imaging
CT abdomen pelvis�03/05/2024- No acute abnormality in the abdomen or pelvis.
Cholelithiasis without acute cholecystitis.
Colonic diverticulosis without acute diverticulitis.
MRI with MRCP�03/05/2024. ADENOMYOMATOSIS and CHOLELITHIASIS in the gallbladder fundus.
2. No MRCP evidence for choledocholithiasis.
3. 2.3 cm multiseptated cyst in the uncinate process of the pancreas which is most likely an intraductal papillary mucinous tumor (IPMT).
4. Mild chronic bilateral renal disease.
5. Severe discogenic degenerative disease in the thoracic and lumbar spine.
6. Chronic vertebral body endplate fractures of T9 and L1.
CT cervical spine without contrast�03/06/2024�
No acute fracture or malalignment. No high-grade narrowing of the central cervical spinal canal. Multilevel overall moderate degenerative changes as above.
Head CT�03/06/2024
No acute intracranial abnormality.
--- NOTE | 2024-03-08 10:50 | W.PN.HOSP.TC ---
Today's Communication/Plan
-
AST and ALT worsening -- re-consulted GI
Appreciate ID and GI recommendations
Assessment / Plan
Assessment / Plan
Physical Exam
General: Not in acute distress
HEENT: Normocephalic, Moist mucous membranes
GI: Soft, Non Distended and Tender (RUQ)
Musculoskeletal: No Cyanosis and No Edema
Skin: Warm and Dry
Neuro: AAO x 3, No Motor Deficits and Nonfocal/grossly intact
Psych: Calm

Assessment/Plan
# Transaminitis, concern for choledocholithiasis
# Fever/joint pain/headache/malaise secondary to viral syndrome, UTI?, vs biliary source
# Lower abdominal pain
# Cholelithiasis
# 2.3cm uncinate pancreatic cyst
# Cholelithiasis and adenomyomatosis of gallbladder fundus
-CT scan of the abdomen pelvis showed gallstones in the fundus of the gallbladder with possible inflammation of the fundus.
-GI re-consulted given worsening AST and ALT, recommendations appreciated
-MRCP showed 2.3cm multiseptated cyst of uncinate and gallstones with adenomyomatosis
-Follow blood and urine cultures
-Hepatitis Panel negative
-Lyme, EBV and Babesia studies came back positive
-ID consulted, recommendations appreciated
-Status post Zosyn, Rocephin and Flagyl
-Now on Doxycycline 100 mg BID -- should continue this for a total of 14 days (first dose was on the evening of March 06, 2024)
-Also, for Babesia: Azithromycin 500 mg p.o. daily (first dose was on March 07, 2024) x 10 days and Atovaquone 750 mg p.o. twice daily x 10 days (first dose was on March 07, 2024 evening)
-Low fat diet
#Headache - RESOLVED
-Possibly from Lyme/EBV/Babesia
-Appreciate neurology recommendations
-Compazine 10 mg every 8 hours IV as needed for headache
-If GFR rises above 60 could use very low-dose of codeine as needed for headache
-Avoid NSAIDs given LANNY this hospitalization
-CT head and CT cervical spine noted
-If patient is unimproved with time and no clear cause of symptoms, then reconsult neuro
-Follow-up ANCA and BARRY
# Hand numbness - RESOLVED
-Likely ulnar neuropathy from recent compression and sedentary state, as per neuro
# Concern for acute renal failure
-creatinine 1.9 unknown baseline
-IVF bolus and continue IVF
-renally dose medication
-Recheck CBC and BMP outpatient
#Hypothyroidism
-cont Synthroid
#Hyperlipidemia
-cont statin
#History of Colonic Polyps
#Depression
DVT Prophylaxis - SCDs and Heparin Subq
Full Code
Anticipated Discharge: 24 - 48 hours
Subjective/Interval History
-
Date of Service: March 08, 2024
Patient was seen and examined. She reported no headache, vomiting, dizziness or any other complaints.
Objective Data
-
Labs:
Laboratory Results
03/08/24
08:10
WBC 5.2
Hgb 10.7 L
Hct 31.9 L
Plt Count 210
Sodium 136
Potassium 4.2
Chloride 105
Carbon Dioxide 26
BUN 10
Creatinine 0.9
Glucose 97
Calcium 9.1
Total Bilirubin 1.2
AST 161 H
ALT 198 H
Alkaline Phosphatase 114
Vital Signs:
Vital Signs
Temp Pulse Resp BP Pulse Ox
98.0 F 63 18 145/67 96
03/08/24 07:00 03/08/24 07:00 03/08/24 07:00 03/08/24 07:00 03/08/24 07:00
I&O
03/07/24 03/08/24 03/09/24
06:59 06:59 06:59
Intake Total 1080 / 1080 1200 / 1200
Balance 1080 / 1080 1200 / 1200
--- NOTE | 2024-03-08 13:58 | W.PN.GI.CBS2 ---
Addendum entered and electronically signed by Donald Thompson MD 03/08/24 14:47:
I saw and examined the patient.
The medical billing representative's note was reviewed and I agree with the note.
Comment: Denies complaints. No abd pain
ABD soft NTND
Called back to see pt for increase in LFTs
Overall AST/ALT are stable, improved since admission
Likely due to infection. US and MRI showed no concerning findings
Repeat LFTs next week for follow up
F/u with Dr Woodall for pancreatic cyst in office
OK for d/c
Original Note:
Today's Communication / Plan
-
Repeat LFTs 1-2 weeks after discharge, follow up with GI outpatient
Assessment / Plan
-
73 year old female with past medical history of hyperlipidemia, hypothyroidism, colonic polyps, depression, who presented to the ED from home 03/04 for diffuse body aches, subjective fever, abdominal pain. During this hospitalization she was found to
have Lyme, EBV, babesia; GI was consulted for elevated LFTs. Abdominal US/CT/MRCP showed cholelithiasis without cholecystitis/choledocholithiasis; additional findings- adenomyomatosis of gallbladder, mild intrahepatic biliary dilation with no CBD
dilation, 2.3 cm multiseptated pancreatic cyst (likely intraductal papillary mucinous tumor), hiatal hernia, diverticulosis, DDD. She feels much better with treatment of lyme and babesia per ID, and she anticipates discharge home shortly.
Impression:
Elevated LFTs
- Mild fluctuations causing slight elevation today compared to yesterday; not of significant concern at this time given that LFTs overall stable from admission and patient is clinically improving.
- Viral hepatitis panel negative; hep A total Ab positive, but IgM negative- no active infection
- Autoimmune hepatitis labs pending
Cholelithiasis
- Asymptomatic
Lyme
Babesia
EBV
LANNY on admission
- Cr 1.9 --> 0.9
Hypercholesterolemia
Hypothyroidism
Depression
Colon polyp
Recommendations:
- No further inpatient GI workup indicated. Appropriate for discharge home from GI perspective.
- Repeat LFTs outpatient in 1-2 weeks.
- Follow up with Dr. Woodall in GI office for pancreatic cyst- serial MRI vs elective EUS FNA.
- Discussed plan with patient.
Subjective
Subjective
Date of Service: March 08, 2024
Feeling very well, no complaints. Denies abdominal pain, nausea, vomiting, pain/difficulty swallowing, diarrhea/constipation. Last bowel movement was this morning and was brown, formed, easy to pass. Denies black/bloody stools. She is tolerating the
low fat diet. She expresses desire to go home.
Objective
Data Reviewed
Laboratory Data:
Laboratory Results
03/08/24 08:10
03/08/24 08:10
Laboratory Results
PT 14.5 Sec (11.4-14.6) 03/06/24 06:26
INR 1.15 03/06/24 06:26
Magnesium 1.7 mg/dl (1.6-2.3) 03/06/24 06:26
Total Bilirubin 1.2 mg/dl (0.2-1.3) 03/08/24 08:10
AST 161 U/L (14-36) H 03/08/24 08:10
ALT 198 U/L (0-35) H 03/08/24 08:10
Alkaline Phosphatase 114 U/L (38-126) 03/08/24 08:10
Lipase 59 U/L (23-300) 03/05/24 12:44
Vital Signs and I&O:
Vital Signs
Temp Pulse Resp BP Pulse Ox
98.0 F 63 18 145/67 96
03/08/24 07:00 03/08/24 07:00 03/08/24 07:00 03/08/24 07:00 03/08/24 07:00
I&O
03/07/24 03/08/2424
06:59 06:59 06:59
Intake Total 1080 / 1080 1200 / 1200
Balance 1080 / 1080 1200 / 1200
Physical Exam
Physical Exam
General: Sitting comfortably in bed, no acute distress. Well-appearing.
Heart: Regular rate and rhythm:
Lungs: Nonlabored breathing. Clear and equal to auscultation bilaterally.
GI: Normal bowel sounds present. Abdomen soft, nontender, nondistended. No rebound, rigidity, guarding.
--- NOTE | 2024-03-08 14:56 | W.DS.TRANS ---
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
-
Discharge Instructions:
Discharge Diagnosis/Procedures # Transaminitis
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
# Fever/joint pain/headache/malaise secondary to
Lyme Disease vs. EBV vs. Viral Syndrome
# Lower abdominal pain
# Cholelithiasis
# 2.3cm uncinate pancreatic cyst
# Cholelithiasis and adenomyomatosis of
gallbladder fundus
# Valvular and coronary artery calcifications
# Mild atherosclerotic disease of the abdominal
aorta
# Headache - RESOLVED
# Hand numbness - RESOLVED - Likely from ulnar
neuropathy from recent compression and sedentary
state, as per neuro
# Concern for acute renal failure
# Hypothyroidism
# Hyperlipidemia
# History of Colonic Polyps
# Colonic Diverticulosis
# Per CT Imaging Report: 'Multilevel
degenerative changes throughout the
thoracolumbar spine superior endplate depression
involving L1 of approximately 25%. 5 mm grade 1
retrolisthesis of L1 relative to L2. Minimal
grade 1 anterolisthesis of L3 relative to L4.'
# Depression
#Abdominal MRI Results as per Radiologist's
Report:
'IMPRESSION:
1. ADENOMYOMATOSIS and CHOLELITHIASIS in the
gallbladder fundus.
2. No MRCP evidence for choledocholithiasis.
3. 2.3 cm multiseptated cyst in the uncinate
process of the pancreas which is most likely an
intraductal papillary mucinous tumor (IPMT).
4. Mild chronic bilateral renal disease.
5. Severe discogenic degenerative disease in
the thoracic and lumbar spine.
6. Chronic vertebral body endplate fractures
of T9 and L1.'
Diet Low Fat
Activity As tolerated
Driving Restrictions Not until seen by your Dr
Blood Work Repeat LFTs (Liver Function Tests, AST, ALT, ALP
and Bilirubin) 1-2 weeks after hospital
discharge
Instructions: Azithromycin (Systemic)
Atovaquone
Doxycycline
Stand-Alone Forms:
Changes to Home Medications: Yes
Discharge Medications:
DC Medications w/original date entered in [facility]
atorvastatin 80 mg tablet 80 mg PO DAILY High Cholesterol 03/05/24
eszopiclone 3 mg tablet 3 mg PO HS PRN sleep 03/05/24
levothyroxine 125 mcg tablet 125 mcg PO DAILY Thyroid 03/05/24
lifitegrast 5 % eye drops in a dropperette (Xiidra) 1 drp ophthalmic (eye) BID Eye Condition 03/05/24
atovaquone 750 mg/5 mL oral suspension 750 mg (5 mL) PO Q12 9 days #90 mL 03/08/24
azithromycin 250 mg tablet 500 mg (2 x 250 mg) PO Q24H 9 days #18 tabs 03/08/24
doxycycline hyclate 100 mg tablet 100 mg PO Q12H 12 days #24 tabs 03/08/24
Home Medication Changes
Doxycycline, Atovaquone and Azithromycin are new medications.
Pending Results: Yes
Additional Pending Results:
Final results of blood cultures from hospitalization
Total time spent discharging patient (in min): 38
[2024-03-08 15:50] LABS: ANA, IgG Reflex to HEp-2 Detected (None Detected)
[2024-03-09 01:28] LABS: Myeloperoxidase Antibody 3 AU/mL (0-19); Serine Protease-3, IgG 2 AU/mL (0-19)
[2024-03-11 07:46] LABS: ANA, HEp-2, IgG Detected (<1:80)
[2024-03-11 07:58] LABS: ANA Pattern Speckled
[2024-03-11 07:59] LABS: Cytoplasmic Pattern Speckled
== END 2024-03-08 17:28 | disposition home or self-care (01) | DRG 868 ==
LOC: 4 EAST ACU 04:32
PROVIDERS: Nurse Practitioner Adult Health; ADMITTING PHYSICIAN Internal Medicine; ATTENDING PHYSICIAN Hospitalist; CONSULT PHYSICIAN Internal Medicine Gastroenterology; CONSULT PHYSICIAN Student in an Organized Health Care Education/Training Program; EMERGENCY PHYSICIAN Emergency Medicine
DX: A69.20 Lyme disease, unspecified (principal); K80.10 Calculus of gallbladder with chronic cholecystitis without obstruction; K86.2 Cyst of pancreas; N17.9 Acute kidney failure, unspecified; E03.9 Hypothyroidism, unspecified; E78.00 Pure hypercholesterolemia, unspecified; D69.6 Thrombocytopenia, unspecified; B60.00 Babesiosis, unspecified; F32.A Depression, unspecified
CPT/HCPCS: 36415; 70450; 71046; 72125; 74177; 74181; 76700; 80053; 80076; 81003; 81015; 83516; 83690; 83735; 85025; 85610; 85652; 86038; 86039; 86617; 86618; 86663; 86664; 86665; 86704; 86706; 86708; 86709; 86803; 87015; 87040; 87086; 87207; 87340; 93005; 96361; 96374; 97161; 97166; 99285; Q9967

== ENCOUNTER → 2024-07-19 14:11 | Outpatient (REF) | payer MEDICARE, OTHER, SELFPAY | LOC: WDC 14:11 | PROVIDERS: ATTENDING PHYSICIAN Nurse Practitioner Adult Health | DX: Z12.31 Encounter for screening mammogram for malignant neoplasm of breast (principal) | CPT/HCPCS: 77063; 77067 ==

== ENCOUNTER 2024-08-07 13:13 | Outpatient (RCR) | payer MEDICARE, OTHER, SELFPAY | END 2024-08-07 23:59 | disposition home or self-care (01) | LOC: RPT 13:13 | PROVIDERS: ATTENDING PHYSICIAN Nurse Practitioner Adult Health | DX: S76.311D Strain of muscle, fascia and tendon of the posterior muscle group at thigh level, right thigh, subsequent encounter (principal); M79.604 Pain in right leg; Z73.6 Limitation of activities due to disability | CPT/HCPCS: 97010; 97110; 97140; 97162 ==

== ENCOUNTER → 2024-08-31 10:12 | Outpatient (REF) | payer MEDICARE, OTHER, SELFPAY | LOC: MRI 3T 10:12 | PROVIDERS: ATTENDING PHYSICIAN Nurse Practitioner Adult Health | DX: S76.311D Strain of muscle, fascia and tendon of the posterior muscle group at thigh level, right thigh, subsequent encounter (principal) | CPT/HCPCS: 73718 ==